=== PATIENT | male | born 1945 | race Caucasian/White ===

== ENCOUNTER 2017-11-06 08:29 | Day surgery (SDC) | payer OTHER ==
[2017-11-05 08:42] VITALS: BMI 27.3
[2017-11-06] MEDS ORDERED: PROPOFOL 20 ML ONE (09:45)
[2017-11-06] MEDS ORDERED: ROCURONIUM BROMIDE 50 MG/5 ML VIAL ONE (09:45)
[2017-11-06] MEDS ORDERED: fentaNYL CITRATE 250 MCG/5 ML VIAL ONE (09:45)
[2017-11-06] MEDS ORDERED: DEXAMETHASONE SOD PHOSPHATE 4 MG/1 ML VIAL ONE (09:46)
[2017-11-06] MEDS ORDERED: LIDOCAINE HCL/PF 2% SDV 5ML VIAL ONE (09:46)
[2017-11-06] MEDS ORDERED: DESFLURANE GAS 240 ML BOTTLE IH ONE (09:49)
[2017-11-06] MEDS ORDERED: VANCOMYCIN 1,000 MG VIAL (RESTRICTED TO ID ONLY) ONE (10:03)
[2017-11-06] MEDS ORDERED: MIDAZOLAM HCL 2 MG/2 ML SINGLE DOSE VIAL ONE (10:42)
[2017-11-06] MEDS ORDERED: ONDANSETRON 4 MG/2 ML VIAL IVPUSH PRN (11:08)
[2017-11-06] MEDS ORDERED: oxyCODONE HCL 5 MG TABLET PO PRN ×3 (11:08→11:32)
[2017-11-06] MEDS ORDERED: LACTATED RINGERS SOLUTION 1,000 ML IV SCH (11:15)
--- NOTE | 2017-11-06 11:34 | OP ---
Operative Note - Note: Operative Date: 11/06/17 Pre-Operative Diagnosis: BPH/retention Operation: TURP/TURVP Findings: trilobar hyperplasia Post-Operative Diagnosis: Same as Pre-op Surgeon: Dick Harris Anesthesia: Spinal Specimens Removed: prostate chips Drains & Tubes with Location: 24fr jones Operative Report Dictated: Yes
[2017-11-06] MEDS ORDERED: ELECTROLYTE-148 SOLN 1,000 ML IV SCH (11:45)
[2017-11-06 15:03] VITALS: TEMP 98
--- NOTE | 2017-11-06 15:22 | OP ---
DATE OF OPERATION: 11/06/2017 PREOPERATIVE DIAGNOSIS: Benign prostatic hypertrophy with urinary retention. POSTOPERATIVE DIAGNOSIS: Benign prostatic hypertrophy with urinary retention. PROCEDURE: Cystoscopy, bipolar transurethral vaporization and resection of the prostate. SURGEON: Dick Harris MD INDICATION: Patient is a 72-year-old male with BPH and urinary retention, failed multiple voiding trials despite maximum medical management. He elected to undergo TURP and TURVP, understood the risks of bleeding, infection, impotence, incontinence, stricture formation, potential need for additional procedures, potential for persistent retention, potential injury to adjacent organs, and scar tissue formation. After informed consent was obtained, patient was taken to the OR, placed supine on the table. After cardiac monitoring administered, spinal anesthetic was given. He was prepped and draped in dorsal lithotomy position. He was given 1 g of vancomycin. The resectoscope was inserted into the urethra with the visual obturator. On entry, there was normal prostatic urethra. It was 4-5 cm and visually occlusive and large median bar. Bilateral ureteral orifices were seen in their normal anatomic positions. No tumors or stones noted in the bladder. At this point, attention was turned using the bipolar loop, the median lobe was taken down first, level to the bladder neck, and this tissue was removed. Then, loops were switched to a button loop, and the lateral tissue was vaporized until a wide-open channel was created once the resectoscope was situated just beyond the verumontanum. There was no resection or vaporization within 1 cm of the verumontanum to minimize incontinence. The resectoscope was then removed, and then, a 24-Chadian Quiroz was then placed to straight drainage. [place]-tinged urine was retrieved. The patient awoke from anesthesia and transferred to recovery room in stable condition. There were no complications. Estimated blood loss was minimal. Ry [id number]
[2017-11-06 16:49] VITALS: BP 154/76; PULSE 85
--- NOTE | 2017-11-07 19:01 | PATH ---
Surgical Pathology Report Patient Name: CARLTON TYSON [facility]. Rec. #: [id number] /Age/Gender: 1945 (Age: 72) / M Account: [id number] Location: [facility] Taken: 11/06/2017 Received: 11/06/2017 Reported: 11/07/2017 Physicians: Dick Harris M.D. Specimen(s) Received PROSTATE CHIPS Clinical History BPH (benign prostate hypertrophy) Final Diagnosis PROSTATE TISSUE, TRANSURETHRAL RESECTION OF THE PROSTATE: BENIGN PROSTATE TISSUE SHOWING STROMAL AND GLANDULAR HYPERPLASIA WITH MODERATE CHRONIC INFLAMMATION. ADJACENT UROTHELIAL MUCOSA SHOWING PREDOMINATE CHRONIC, AND FOCAL ACUTE INFLAMMATION. Electronically Signed Evelio Kingston M.D. Gross Description Received in formalin, labeled "prostate tissue" are multiple ahumada, irregular portions of soft tissue measuring 3 x 3 x 1cm in aggregate. The specimen is submitted in toto in 6 cassettes. LUIS/11/06/2017 magdiel/11/06/2017
== END 2017-11-06 16:55 | disposition home or self-care (01) ==
LOC: JASU-SURG 08:29
PROVIDERS: ATTEND Urology
PROC: 0TJB8ZZ Inspection of Bladder, Via Natural or Artificial Opening Endoscopic (ICD-10-PCS; 2017-11-06)
PROC: 0VT08ZZ Resection of Prostate, Via Natural or Artificial Opening Endoscopic (ICD-10-PCS; principal; 2017-11-06 10:00)
DX: N40.1 Benign prostatic hyperplasia with lower urinary tract symptoms (principal); R33.8 Other retention of urine; I10 Essential (primary) hypertension; E11.9 Type 2 diabetes mellitus without complications
CPT/HCPCS: 82962; 88305-TC; 94760